=== PATIENT | male | born 1955 | race American Indian/Alaskan Native ===

== ENCOUNTER 2018-08-30 03:10 | Emergency (ER) | payer SELFPAY ==
[2018-08-30] MEDS ORDERED: ASPIRIN PO ONE (03:13)
[2018-08-30 03:41] LABS: Basophils % (Auto) 0.5 % (0.0-1.8); Eosinophils # (Auto) 0.1 K/mm3 (0.0-0.4); Hematocrit 41.7 % (35.5-45.6); Hemoglobin 13.9 gm/dl (11.8-15.2); Lymphocytes # (Auto) 0.9 K/mm3 (1.2-5.4); Lymphocytes % (Auto) 17.8 % (13.4-35.0); Mean Corpuscular HGB Conc 33 % (32-34); Mean Corpuscular Volume 86 fl (84-94); Monocytes # (Auto) 0.5 K/mm3 (0.0-0.8); Monocytes % (Auto) 10.5 % (0.0-7.3); Platelet Count 240 K/mm3 (140-440); Red Blood Count 4.85 M/mm3 (3.65-5.03); Red Cell Distribution Width 13.9 % (13.2-15.2)
[2018-08-30 04:01] LABS: BUN/Creatinine Ratio 12; Blood Urea Nitrogen 11 mg/dL (9-20); Calcium 8.9 mg/dL (8.4-10.2); Hemolysis Index 10
--- NOTE | 2018-08-30 04:13 | XRay Report ---
PROCEDURE: XR CHEST 1V AP TECHNIQUE: Chest radiograph single view. HISTORY: Chest Pain COMPARISONS: None . FINDINGS: No mediastinal shift. Cardiac silhouette is not enlarged. No pneumothorax, effusion, or focal pulmona ry opacity identified. Linear bibasilar atelectasis/scarring. No acute skeletal findings. IMPRESSION: No acute pulmonary finding identified. This document is electronically signed by Anatoliy Forbes MD., August 30 2018 04:11:37 AM ET
[2018-08-30 06:20] VITALS: BP 159/83
--- NOTE | 2018-08-30 07:14 | Emergency Department Report ---
ED Chest Pain HPI - General Chief Complaint: Chest Pain Stated Complaint: CHEST PAIN Time Seen by Provider: 08/30/18 06:31 Source: patient Mode of arrival: Ambulatory Limitations: No Limitations - History of Present Illness Initial Comments: Mr. Schrader is a 62-year-old male history of hypertension who presents with left- sided chest tightness radiating to the left arm and neck. This occurred 2 times within the last 2 days. More severe this morning. It awakened him from sleep. He went to the fire station realized that his systolic blood pressure was 190 mmHg. He was strongly encouraged to go to the ED. No previous history of heart disease. No known family history of heart disease. He was diagnosed with hypertension 10 years ago. He developed lip swelling with blood pressure medications. He chose to manage his blood pressure with lifestyle healthy diet and exercise. He currently does not have any pain. However the chest pain did persist for 30 minutes to 1 hour. MD Complaint: chest pain -: Sudden, This morning Onset: during rest Pain Location: left chest Pain Radiation: LUE Severity scale (0 -10): 0 Quality: tightness Consistency: now resolved Improves With: nothing Worsens With: nothing - Related Data Previous Rx's Medication Instructions Recorded Last Taken Type amLODIPine [Norvasc] 5 mg PO DAILY 30 Days #30 tab 08/30/18 Unknown Rx hydroCHLOROthiazide [HCTZ] 12.5 mg PO QDAY 30 Days #30 capsule 08/30/18 Unknown Rx Allergies Allergy/AdvReac Type Severity Reaction Status Date / Time lisinopril Allergy Angioedema Verified 08/30/18 03:13 Heart Score - HEART Score History: Highly suspicious EKG: Normal Age: > 65 Risk factors: 1-2 risk factors Troponin: < normal limit HEART Score: 5 ED Review of Systems ROS: Stated complaint: CHEST PAIN Other details as noted in HPI Comment: All other systems reviewed and negative Constitutional: denies: fever, malaise Cardiovascular: chest pain ED Past Medical Hx - Past Medical History Previous Medical History?: Yes Hx Hypertension: Yes - Surgical History Past Surgical History?: No - Social History Smoking Status: Current Every Day Smoker Substance Use Type: Alcohol - Medications Home Medications: Home Medications Medication Instructions Recorded Confirmed Last Taken Type amLODIPine [Norvasc] 5 mg PO DAILY 30 Days #30 tab 08/30/18 Unknown Rx hydroCHLOROthiazide [HCTZ] 12.5 mg PO QDAY 30 Days #30 capsule 08/30/18 Unknown Rx ED Physical Exam - General Limitations: No Limitations General appearance: alert, in no apparent distress - Head Head exam: Present: atraumatic, normocephalic - Eye Eye exam: Present: normal appearance - ENT ENT exam: Present: mucous membranes moist - Neck Neck exam: Present: normal inspection, full ROM - Respiratory Respiratory exam: Present: normal lung sounds bilaterally. Absent: respiratory distress, wheezes, rales, rhonchi - Cardiovascular Cardiovascular Exam: Present: regular rate, normal rhythm, normal heart sounds. Absent: systolic murmur, diastolic murmur, rubs, gallop - GI/Abdominal GI/Abdominal exam: Present: soft, normal bowel sounds. Absent: distended, tenderness, guarding, rebound - Rectal Rectal exam: Present: deferred - Extremities Exam Extremities exam: Present: normal inspection - Back Exam Back exam: Present: normal inspection - Neurological Exam Neurological exam: Present: alert, oriented X3 - Psychiatric Psychiatric exam: Present: normal affect, normal mood - Skin Skin exam: Present: warm, dry, intact, normal color. Absent: rash ED Course Vital Signs 08/30/18 08/30/18 08/30/18 03:12 03:14 03:59 Temperature 98.1 F 98.1 F Pulse Rate 68 70 54 L Respiratory 18 18 23 Rate Blood Pressure 184/99 184/99 O2 Sat by Pulse 98 98 100 Oximetry 08/30/18 08/30/18 08/30/18 04:00 04:30 05:00 Temperature Pulse Rate 54 L 51 L 73 Respiratory 12 14 16 Rate Blood Pressure 176/92 168/81 176/92 O2 Sat by Pulse 96 Oximetry 08/30/18 08/30/18 08/30/18 05:30 06:00 06:30 Temperature Pulse Rate Respiratory Rate Blood Pressure 168/81 159/83 159/83 O2 Sat by Pulse 99 96 97 Oximetry ED Medical Decision Making - Lab Data Result diagrams: 08/30/18 03:27 08/30/18 03:27 Laboratory Results - last 24 hr 08/30/18 08/30/18 03:27 03:27 WBC 4.8 RBC 4.85 Hgb 13.9 Hct 41.7 MCV 86 MCH 29 MCHC 33 RDW 13.9 Plt Count 240 Lymph % (Auto) 17.8 Coffey % (Auto) 10.5 H Eos % (Auto) 2.0 Baso % (Auto) 0.5 Lymph # 0.9 L Coffey # 0.5 Eos # 0.1 Baso # 0.0 Seg Neutrophils % 69.2 Seg Neutrophils # 3.3 Sodium 136 L Potassium 3.8 Chloride 99.1 Carbon Dioxide 24 Anion Gap 17 BUN 11 Creatinine 0.9 Estimated GFR > 60 BUN/Creatinine Ratio 12 Glucose 99 Calcium 8.9 Troponin T < 0.010 - EKG Data EKG shows normal: sinus rhythm, axis, intervals, QRS complexes, ST-T waves Rate: normal - Radiology Data Radiology results: report reviewed interpreted by me: Chest radiograph according to radiology report: No acute process - Medical Decision Making Mr. Schrader presents with chest pain concerning for acute coronary syndrome. I s poke with him at length concerning the risks alternatives of being admitted to hospital. He is currently traveling from [place] for an important meeting today. I spoke with about the risk of heart disease. I spoke at length regarding the risk of risk of a major adverse cardiac event within the next 30 days. Heart score 5. I prescribed amlodipine and hydrochlorothiazide. He left the hospital AGAINST MEDICAL ADVICE. I strongly encouraged him to be admitted for cardiac evaluation. He has made an appointment with his primary physician in [place] for latet this week. He understands to call 911 if symptoms return. 1. chest pain concerning for acute coronary syndrome 2. Hypertensive urgency. Critical care attestation.: If time is entered above; I have spent that time in minutes in the direct care of this critically ill patient, excluding procedure time. ED Disposition Clinical Impression: Chest pain, Hypertensive urgency Disposition: [id number] LEFT AGAINST MED ADVICE Is pt being admited?: No Does the pt Need Aspirin: No Condition: Stable Instructions: Chest Pain (ED), Hypertension (ED) Additional Instructions: Please call 911 if your symptoms return. Prescriptions: hydroCHLOROthiazide [HCTZ] 12.5 mg PO QDAY 30 Days #30 capsule amLODIPine [Norvasc] 5 mg PO DAILY 30 Days #30 tab Referrals: HARVEY MARTIN MD [Staff Physician] - 3-5 Days
== END 2018-08-30 07:23 | disposition left against medical advice (07) ==
LOC: ED 03:10
DX: R07.89 Other chest pain (principal); I16.0 Hypertensive urgency; I10 Essential (primary) hypertension; F17.200 Nicotine dependence, unspecified, uncomplicated; Z88.8 Allergy status to other drugs, medicaments and biological substances
CPT/HCPCS: 36415; 71045; 80048; 84484; 85025; 93005; 93010